=== PATIENT | male | born 1985 | race Caucasian/White ===

== ENCOUNTER 2017-10-13 10:51 | Emergency (ER) | payer BC ==
[2017-10-13 12:12] LABS: BASO % 0 % (0-3); EOS # 0.2 x10^3/uL (0.0-0.7); EOS % 1 % (0-3); HEMATOCRIT 47.3 % (39.0-53.0); HEMOGLOBIN 15.9 g/dL (13.0-17.5); LYMPH # 0.8 x10^3/uL (1.0-4.8); LYMPH % 6 % (24-48); MEAN CORPUSCULAR HEMOGLOBIN 29 pg (25-35); MEAN CORPUSCULAR HGB CONC 34 g/dL (31-37); MEAN CORPUSCULAR VOLUME 87 fL (79-100); MONO # 0.6 x10^3/uL (0.0-1.1); MONO % 5 % (0-9); NEUT # 11.9 x10^3uL (1.8-7.7); NEUT % 88 % (31-73); PLATELET COUNT 258 x10^3/uL (140-400); RED BLOOD COUNT 5.43 x10^6/uL (4.30-5.70); RED CELL DISTRIBUTION WIDTH 13.3 % (11.5-14.5); WHITE BLOOD COUNT 13.6 x10^3/uL (4.0-11.0)
[2017-10-13 12:15] LABS: ADD MAN DIFF? YES
[2017-10-13] MEDS: IV NORMAL SALINE 1000ML BAG 1,000 ML IV (12:24)
[2017-10-13 12:25] LABS: PARTIAL THROMBOPLASTIN TIME 25 SEC (24-38); PROTHROMBIN TIME PATIENT 12.4 SEC (11.7-14.0)
[2017-10-13] MEDS: MORPHINE SULFATE 2 MG/ML DISP.SYRIN. IV/SQ (12:25)
[2017-10-13 12:35] LABS: ANION GAP 12 (6-14); BLOOD UREA NITROGEN 12 mg/dL (8-26); CALCIUM 8.5 mg/dL (8.5-10.1); CARBON DIOXIDE 22 mmol/L (21-32); CHLORIDE 105 mmol/L (98-107); CREATININE 0.7 mg/dL (0.7-1.3); GFR 129.9; GLUCOSE 103 mg/dL (70-99); POTASSIUM 4.5 mmol/L (3.5-5.1); SODIUM 139 mmol/L (136-145)
[2017-10-13] MEDS: ONDANSETRON PF 4 MG/2 ML VIAL. IV (12:37)
[2017-10-13 12:43] LABS: % BANDS 11 % (0-9); % BASOS 1 % (0-3); % EOS 1 % (0-5); % LYMPHS 1 % (24-48); % MONOS 2 % (0-10); % SEGS 84 % (35-66); ALBUMIN 4.1 g/dL (3.4-5.0); ALK PHOS 105 U/L (46-116); ALT (SGPT) 64 U/L (16-63); AST (SGOT) 30 U/L (15-37); DIRECT BILIRUBIN 0.1 mg/dL (0.0-0.2); LIPASE 147 U/L (73-393); PLT ESTIMATE ADEQUATE (ADEQUATE); TOTAL BILIRUBIN 0.3 mg/dL (0.2-1.0); TOTAL PROTEIN 7.3 g/dL (6.4-8.2)
[2017-10-13 13:04] LABS: CKMB INDEX 1.2 % (0-4); CKMB MASS 1.9 ng/mL (0.0-3.6); CREATINE KINASE 156 U/L (39-308)
[2017-10-13 13:41] LABS: BILIRUBIN,URINE NEGATIVE (NEG); CLARITY,URINE CLEAR; COLOR,URINE YELLOW; GLUCOSE,URINE NEGATIVE (NEG); NITRITE,URINE NEGATIVE (NEG); PH,URINE 5.5; PROTEIN,URINE NEGATIVE (NEG-TRACE); UROBILINOGEN,URINE 0.2 mg/dL (0.2 mg/dL)
[2017-10-13 13:45] LABS: BARBITURATES NEG (NEG); BENZODIAZEPINES NEG (NEG); CANNABINOIDS NEG (NEG); COCAINE NEG (NEG); METHADONE NEG (NEG); OPIATES POS (NEG); PHENCYCLIDINE NEG (NEG)
[2017-10-13 13:49] LABS: AMPHETAMINE/METHAMPHETAMINE NEG (NEG); ETHANOL, URINE NEG (NEG)
[2017-10-13 13:52] LABS: BACTERIA,URINE 0 /HPF (0-FEW); RBC,URINE 0 /HPF (0-2); WBC,URINE 0 /HPF (0-4)
[2017-10-13] MEDS: LIDO:MAALOX:DONNATAL 1:1:1 15 ML SINGLE DOSE SWSW (14:02)
== END 2017-10-13 14:09 | disposition home or self-care (01) ==
LOC: ER 10:51
DX: R10.13 Epigastric pain (principal); R10.11 Right upper quadrant pain; R11.0 Nausea; Z87.891 Personal history of nicotine dependence
CPT/HCPCS: 36415; 76705; 80048; 80076; 80307; 81001; 82553; 83690; 85007; 85025; 85610; 85730; 93005; 96361; 96374; 96375; 99285-25; J2270; J2405; J7030